=== PATIENT | male | born 1995 | race Caucasian/White ===

== ENCOUNTER 2024-09-13 03:04 | Emergency (ER) | payer OTHER ==
[2024-09-13 03:50] LABS: Absolute Monocytes 0.6 K/uL (0.1-1.3); Absolute Neutrophil 3.6 K/uL (1.8-8.0); Basophils % 0.3 % (0-1.3); Eosinophils % 0.4 % (0-4.4); Hematocrit 40.2 % (39.6-49.0); Hemoglobin 13.2 g/dL (13.6-17.9); Lymphocytes % 18.7 % (15.3-44.8); MCH 30.5 pg (27.0-35.0); MCHC 32.9 g/dL (32.0-36.0); MCV 92.6 fL (80-100); Monocytes % 11.9 % (3.3-12.3); Neutrophils % 68.7 % (41.7-73.7); Nucleated Red Blood Cells % 0.1 % (0-0); Platelets 260 thou/uL (152-406); RBC Red Blood Cell Count 4.34 M/uL (4.33-5.43); Red Cell Distribution Width 12.9 % (12.1-15.2)
[2024-09-13 03:52] LABS: PT Prothrombin Time 12.4 SECONDS (9.4-12.5); PTT, Activated Partial Thromb 31.9 SECONDS (24.3-36.9); Protime INR 1.11
[2024-09-13 04:06] LABS: ALT/SGPT 19 U/L (16-61); AST/SGOT 14 U/L (15-37); Albumin 4.1 g/dL (3.4-5.0); Albumin/Globulin Ratio 1.2 (1.1-1.8); Alkaline Phosphatase 60 U/L (45-117); Anion Gap 8.3 mEq/L (5.0-15.0); BUN Blood Urea Nitrogen 15 mg/dL (7-18); Bicarbonate 28 mEq/L (21-32); Bilirubin Total 0.4 mg/dL (0.2-1.0); Globulin 3.4 g/dL (2.3-3.5); Glomerular Filtration Rate 121 ml/min (=/>90); Glucose Level 95 mg/dL (74-106); Potassium 3.3 mEq/L (3.5-5.1); Protein, Total 7.5 g/dL (6.4-8.2); Sodium Level 140 mEq/L (136-145)
[2024-09-13 04:06] LABS: Barbiturates NEGATIVE (NEGATIVE); Benzodiazepines NEGATIVE (NEGATIVE); Cocaine NEGATIVE (NEGATIVE); METHAMPHETAM NEGATIVE (NEGATIVE); Methadone NEGATIVE (NEGATIVE); Opiates NEGATIVE (NEGATIVE); Phencyclidine NEGATIVE (NEGATIVE); THC Cannibis NEGATIVE (NEGATIVE)
[2024-09-13 04:08] LABS: Bilirubin Direct < 0.2 mg/dL (0-0.2); Bilirubin Indirect, Calculated 0.2 mg/dL (0.2-0.8)
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
--- NOTE | 2024-09-13 06:23 | RAD REPORT ---
CLINICAL HISTORY: SOB. COMPARISON: None. TECHNIQUE: XR CHEST 1 VIEW 09/13/2024 3:10 AM FINGERPRINTER FINDINGS: Cardiac silhouette is normal in size. Lungs are clear without consolidation, atelectasis, mass or lupe ma. There is no pleural effusion. There is no pneumothorax. There are no acute osseous findings. IMPRESSION: Clear lungs. Electronically signed by: Shiva Cline MD 09/13/2024 03:48 AM FINGERPRINTER RP Due to temporary technical issues with the [employer] reporting system, reports are being sirena d by the in-house radiologist without review as a courtesy to ensure prompt reporting the interpreting radiologist is fully responsible for the content of the report. Transcribed Date/Time: 09/13/2024 6:23 AM
[2024-09-13 07:50] VITALS: TEMP 98.3; O2SAT 100
[2024-09-13 08:05] VITALS: BP 116/79
--- NOTE | 2024-09-15 12:02 | EKG ---
Test Date: 2024-09-13 Test Time: 03:15:36 [employer] Supervisor: UMAIR MEASUREMENT RESULTS: Intervals: Rate: 60 NM: 138 QRSD: 96 QT: 384 QTc: 384 [place]: P: 34 NM: 138 QRS: 75 T: 57 INTERPRETIVE STATEMENTS: Normal sinus rhythm Normal ECG No previous ECG available for comparison Electronically Signed On 09-15-24 12:01:04 SOCIAL SERVICE AGENCY DIRECTOR by Shukri Moctezuma
== END 2024-09-13 04:27 | disposition home or self-care (01) ==
LOC: ER 03:04
DX: T65.91XA Toxic effect of unspecified substance, accidental (unintentional), initial encounter (principal)
CPT/HCPCS: 36415; 71045; 80048; 80076; 80143; 80179; 80307; 82077; 85025; 85610; 85730; 93005

== ENCOUNTER 2025-02-11 19:27 | Emergency (ER) | payer OTHER, SELFPAY ==
[2025-02-11] MEDS ORDERED: NA CHLORIDE 0.9% 1,000 ML ONE (19:44)
[2025-02-11 19:46] LABS: Absolute Lymphocytes (CBC) 1.4 K/uL (0.7-4.9); Absolute Monocytes 0.6 K/uL (0.1-1.3); Absolute Neutrophil 2.3 K/uL (1.8-8.0); Basophils % 0.3 % (0-1.3); Eosinophils % 0.8 % (0-4.4); Hematocrit 38.6 % (39.6-49.0); Hemoglobin 13.5 g/dL (13.6-17.9); Lymphocytes % 32.7 % (15.3-44.8); MCH 31.6 pg (27.0-35.0); MCHC 35.1 g/dL (32.0-36.0); MCV 90.1 fL (80-100); Monocytes % 13.1 % (3.3-12.3); Neutrophils % 53.1 % (41.7-73.7); Platelets 281 thou/uL (152-406); RBC Red Blood Cell Count 4.28 M/uL (4.33-5.43); Red Cell Distribution Width 13.4 % (12.1-15.2)
[2025-02-11 20:06] LABS: Albumin/Globulin Ratio 1.2 (1.1-1.8); Anion Gap 6.7 mEq/L (5.0-15.0); Bilirubin Total 0.6 mg/dL (0.2-1.0); Globulin 3.4 g/dL (2.3-3.5); Potassium 3.7 mEq/L (3.5-5.1); Protein, Total 7.4 g/dL (6.4-8.2)
--- NOTE | 2025-02-11 21:06 | RAD REPORT ---
EXAMINATION: Abdomen Pelvis W Contrast CLINICAL INDICATION: Male, 29 years old.ABD PAIN TECHNIQUE: CT abdomen and pelvis was performed, after the administration of IV contrast, [facility]. Axial, sagittal and coronal reconstructions were obtained. One or more of the following dose reduction techniques were used: Automated exposure control, adjustment of the mA and/o r kV according to patient size, and/or iterative reconstruction. Unless otherwise specified, incidental findings do not require dedicated imaging follow-up. [id number]. COMPARISON: No prior exam. FINDINGS: LOWER CHEST: No acute process identified.No significant pericardial effusion. UPPER GI: No significant abnormality. LIVER: No significant focal abnormality. GALLBLADDER/BILE DUCTS: No biliary ductal dilatation.? PANCREAS: No mass, ductal dilation, or shahnaz-pancreatic fluid. SPLEEN: Unremarkable. ADRENALS: No adrenal masses. KIDNEYS AND URETERS: 2 mm stone at the left UPJ without hydronephrosis.2 mm stone in the right kidney .No suspicious renal mass ABDOMINAL AORTA AND OTHER VESSELS: Normal caliber aorta and IVC. PERITONEUM: No abnormal free fluid. No free air. LYMPH NODES: No pathologic lymphadenopathy. ABDOMINAL WALL: Unremarkable SMALL BOWEL/COLON: Small bowel has normal course and caliber. No colonic wall thickening or pericolon ic inflammatory changes.Normal appendix. URINARY BLADDER: Underdistended but grossly unremarkable. REPRODUCTIVE ORGANS: No pathologic process. MUSCULOSKELETAL: No acute or suspicious osseous abnormality. ADDITIONAL FINDINGS: None. IMPRESSION: 2 mm nonobstructing stone at the left UPJ may be the source of pain. No appendicitis.
--- NOTE | 2025-02-11 22:05 | EDPHYS ---
Physician Documentation [facility] Name: Tong Almonte Age: 29 yrs Sex: Male : 1995 Arrival Date: 02/11/2025 Time: 19:27 Bed 2 Private MD: ED Physician Haydee Montes HPI: 02/11 22:10 This 29 yrs old Male presents to ER via EMS with complaints of Abdominal Pain. kb 22:10 Patient is a 29-year-old male presents for severe left upper quadrant pain that started kb about 15 minutes prior to arrival. Denies nausea, vomiting, diarrhea. Reports history of ulcerative colitis, but is never had pain like this before. EMS administered fentanyl 100 mcg and route and patient's pain resolved.. Historical: - Allergies: 19:40 No Known Allergies; al5 - PMHx: 19:40 ulcerative colitis; Crohn's disease; al5 - PSHx: 19:40 None; al5 - Immunization history:: Adult Immunizations not up to date. - Infectious Disease History:: Denies. - Social history:: Smoking status: Patient denies any tobacco usage or history of. ROS: 22:10 Constitutional: As per HPI kb Exam: 22:10 Constitutional: This is a well developed, well nourished patient who is awake, alert, kb and in no acute distress. Head/Face: Normocephalic, atraumatic. ENT: Moist Mucous membranes Cardiovascular: Regular rate Respiratory: Respirations even and unlabored. No increased work of breathing. Talking in full sentences Abdomen/GI: Soft, non-tender. No distention Skin: Warm, dry with normal turgor. Normal color. MS/ Extremity: Pulses equal, no cyanosis. Neurovascular intact. Full, normal range of motion. Neuro: Awake and alert, GCS 15, oriented to person, place, time, and situation. Vital Signs: 19:39 BP 119 / 77; Pulse 67; Resp 16; Temp 97.8(O); Pulse Ox 99% on R/A; Weight 77.11 kg; al5 Height 6 ft. 0 in. ; 20:00 BP 113 / 74; Pulse 65; Resp 16; Pulse Ox 97% on R/A; al5 20:30 BP 109 / 70; Pulse 65; Resp 17; Pulse Ox 100% on R/A; al5 21:00 BP 112 / 73; Pulse 70; Resp 17; Pulse Ox 100% ; al5 21:30 BP 118 / 78; Pulse 71; Resp 16; Pulse Ox 99% ; al5 22:00 BP 110 / 72; Pulse 67; Resp 16; Pulse Ox 99% on R/A; dd2 23:00 BP 107 / 80; Pulse 69; Resp 16; Temp 98.3; Pulse Ox 100% on R/A; dd2 19:39 Body Mass Index 23.06 (77.11 kg, 182.88 cm) al5 MDM: 19:29 Medical Screening Exam initiated kb 22:11 Differential diagnosis: diverticulitis, non-specific abd pain, pancreatitis, kb Ureterolithiasis, Colitis. Data reviewed: vital signs, nurses notes. Historians other than the Patient: EMS: [facility]. Counseling: I had a detailed discussion with the patient and/or guardian regarding the historical points, exam findings, and any diagnostic results supporting the discharge/admit diagnosis, lab results, radiology results, the need for outpatient follow up, a family practitioner, to return to the emergency department if symptoms worsen or persist or if there are any questions or concerns that arise at home. 02/11 19:29 Order name: CBC with Diff; Complete Time: 19:51 kb 02/11 19:29 Order name: CMP; Complete Time: 20:08 kb 02/11 19:29 Order name: Lipase; Complete Time: 20:08 kb 02/11 20:10 Order name: CT Abd/Pelvis - IV Contrast Only; Complete Time: 21:07 kb 02/11 19:29 Order name: IV Saline Lock; Complete Time: 19:37 kb 02/11 19:29 Order name: Labs collected and sent; Complete Time: 19:37 kb Administered Medications: 19:51 Drug: NS 0.9% IV 1000 ml IV at 1 bolus Per protocol; to be given as a bolus over 60 al5 minutes Route: IV; Rate: 1 bolus; Site: right antecubital; 21:00 Follow up: IV Status: Completed infusion; IV Intake: 1000ml dd2 Disposition Summary: 02/11/25 22:05 Discharge Ordered Notes: Location: Home kb Condition: Stable kb Diagnosis - Calculus of kidney with calculus of ureter kb Followup: kb - With: Emergency Department - When: As needed - Reason: Worsening of condition Followup: kb - With: Private Physician - When: 2 - 3 days - Reason: Recheck today's complaints, Continuance of care, Re-evaluation by your physician Discharge Instructions: - Discharge Summary Sheet kb - Kidney Stones, [id number] kb - Dietary Guidelines to Help Prevent Kidney Stones kb Forms: - Medication Reconciliation Form kb - Antibiotic Education kb - Prescription Opioid Use kb - Patient Portal Instructions kb - Leadership Thank You Letter kb Prescriptions: - Zofran 4 mg Oral tablet - take 1 tablet ORAL route every 6 hours As needed; 12 tablet; Refills: 0, kb Product Selection Permitted - Diclofenac Sodium 75 mg Oral tablet, delayed release (enteric coated) - take 1 tablet ORAL route 2 times per day As needed; 30 tablet; Refills: 0, kb Product Selection Permitted Signatures: Dispatcher [employer] Aubree Luna, Arlene Acevedo RN RN al5 JOSE RAUL MOY RN dd2 Corrections: (The following items were deleted from the chart) 19:41 19:40 PMHx: CHRONS; al5 al5 19:41 19:40 PMHx: chron's disease; al5 al5
--- NOTE | 2025-02-11 22:05 | ER ---
Nurse's Notes [facility] Name: Tong Almonte Age: 29 yrs Sex: Male : 1995 Arrival Date: 02/11/2025 Time: 19:27 Bed 2 Private MD: Diagnosis: Calculus of kidney with calculus of ureter Presentation: 02/11 19:39 Chief complaint: Patient states: c/o L side abdominal pain starting about 15-20 minutes al5 ago. Coronavirus screen: At this time, the client does not indicate any symptoms associated with coronavirus-19. Ebola Screen: No symptoms or risks identified at this time. Initial Sepsis Screen: Does the patient meet any 2 criteria? No. Patient's initial sepsis screen is negative. Does the patient have a suspected source of infection? No. Patient's initial sepsis screen is negative. Risk Assessment: Do you want to hurt yourself or someone else? Patient reports no desire to harm self or others. Onset of symptoms was February 11, 2025. Care prior to arrival: Medication(s) given: 100 mcg fentanyl IV initiated. 20 GA, in the right antecubital area. 19:39 Method Of Arrival: EMS: [facility] al5 19:39 Acuity: ANGELA 3 al5 Triage Assessment: 19:41 General: Appears in no apparent distress. uncomfortable, Behavior is calm, cooperative. al5 Pain: Complains of pain in left upper quadrant and left lower quadrant. EENT: No signs and/or symptoms were reported regarding the EENT system. Neuro: Level of Consciousness is awake, alert, obeys commands, Oriented to person, place, time, situation. Cardiovascular: Capillary refill < 3 seconds Patient's skin is warm and dry. Cardiovascular:. Respiratory: Airway is patent Respiratory effort is even, unlabored, Respiratory pattern is regular, symmetrical. GI: Abdomen is flat, non-distended, Reports lower abdominal pain, upper abdominal pain. : No signs and/or symptoms were reported regarding the genitourinary system. Derm: Skin is intact, is healthy with good turgor, Skin is pink, warm \T\ dry. normal. Musculoskeletal: No signs and/or symptoms reported regarding the musculoskeletal system. Historical: - Allergies: 19:40 No Known Allergies; al5 - PMHx: 19:40 ulcerative colitis; Crohn's disease; al5 - PSHx: 19:40 None; al5 - Immunization history:: Adult Immunizations not up to date. - Infectious Disease History:: Denies. - Social history:: Smoking status: Patient denies any tobacco usage or history of. Screenin:42 [facility] ED Fall Risk Assessment (Adult) History of falling in the last 3 months, al5 including since admission No falls in past 3 months (0 pts) Confusion or Disorientation No (0 pts) Intoxicated or Sedated No (0 pts) Impaired Gait No (0 pts) Mobility Assist Device Used No (0 pt) Altered Elimination No (0 pt) Score/Fall Risk Level 0 - 2 = Low Risk Oriented to surroundings, Maintained a safe environment, Hourly rounding (assess needs \T\ fall precautionary measures) done. Abuse screen: Denies threats or abuse. Denies injuries from another. Nutritional screening: No deficits noted. Tuberculosis screening: No symptoms or risk factors identified. Assessment: 19:42 Reassessment: see triage assessment. al5 19:43 GI: Bowel sounds present X 4 quads. Abd is soft X 4 quads Abdomen is tender to al5 palpation in left upper quadrant and left lower quadrant. Vital Signs: 19:39 BP 119 / 77; Pulse 67; Resp 16; Temp 97.8(O); Pulse Ox 99% on R/A; Weight 77.11 kg; al5 Height 6 ft. 0 in. ; 20:00 BP 113 / 74; Pulse 65; Resp 16; Pulse Ox 97% on R/A; al5 20:30 BP 109 / 70; Pulse 65; Resp 17; Pulse Ox 100% on R/A; al5 21:00 BP 112 / 73; Pulse 70; Resp 17; Pulse Ox 100% ; al5 21:30 BP 118 / 78; Pulse 71; Resp 16; Pulse Ox 99% ; al5 22:00 BP 110 / 72; Pulse 67; Resp 16; Pulse Ox 99% on R/A; dd2 23:00 BP 107 / 80; Pulse 69; Resp 16; Temp 98.3; Pulse Ox 100% on R/A; dd2 19:39 Body Mass Index 23.06 (77.11 kg, 182.88 cm) al5 ED Course: 19:28 Patient arrived in ED. kb 19:28 [facility] kb 19:28 Haydee Montes MD is Attending Physician. kb 19:37 Arlene Schaeffer, MELODY is Primary Nurse. al5 19:40 Triage completed. al5 19:42 Arm band placed on right wrist. Patient placed in the treatment room, in view of staff al5 members, on pulse oximetry. 19:43 Patient has correct armband on for positive identification. Bed in low position. Call al5 light in reach. Side rails up X 1. Provided Education on: plan of care. 19:43 No provider procedures requiring assistance completed. Maintain EMS IV. Dressing al5 intact. Good blood return noted. Site clean \T\ dry. Gauge \T\ site: 20G RAC. Flushed with 10 mL NS. 20:52 CT Abd/Pelvis - IV Contrast Only In Process Unspecified. EDMS 23:17 IV discontinued, intact, bleeding controlled, No redness/swelling at site. Pressure dd2 dressing applied. Administered Medications: 19:51 Drug: NS 0.9% IV 1000 ml IV at 1 bolus Per protocol; to be given as a bolus over 60 al5 minutes Route: IV; Rate: 1 bolus; Site: right antecubital; 21:00 Follow up: IV Status: Completed infusion; IV Intake: 1000ml dd2 Medication: 19:42 VIS not applicable for this client. al5 Intake: 21:00 IV: 1000ml; Total: 1000ml. dd2 Outcome: 22:05 Discharge ordered by MD. kb 23:17 Discharged to home ambulatory, dd2 23:17 Condition: stable 23:17 Discharge instructions given to patient, Instructed on discharge instructions, follow up and referral plans. medication usage, Demonstrated understanding of instructions, follow-up care, medications, Prescriptions given X 2, 23:17 Patient left the ED. dd2 Signatures: Dispatcher [employer] EDMS Aubree Garcia FNP-C FNP-Ckb Langhorst, Amanda, JOSE RAUL Bynum RN, RN RN dd2 Corrections: (The following items were deleted from the chart) 19:41 19:40 PMHx: CHRONS; al5 al5 19:41 19:40 PMHx: chron's disease; al5 al5 23:17 23:00 IV discontinued, intact, bleeding controlled, No redness/swelling at site. dd2 Pressure dressing applied, dd2
[2025-02-11 23:31] VITALS: BP 107/80; TEMP 98.3; O2SAT 100
== END 2025-02-11 23:17 | disposition home or self-care (01) ==
LOC: ER 19:27
DX: N20.2 Calculus of kidney with calculus of ureter (principal)
CPT/HCPCS: 36415; 74177; 80053; 83690; 85025; J7030